=== PATIENT | female | born 1995 | race Hispanic/Latino ===

== ENCOUNTER 2020-04-24 22:58 | Emergency (ER) | payer SELFPAY ==
[~2020-04-24] VITALS: Ht 157.5 cm; Wt 77.1 kg
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
--- OUTSIDE RECORDS SUMMARY | 2020-04-25 00:35 | XMS REPORT | Continuity of Care Document ---
Author Author [facility] Organization [facility] Address [address] [place] [address] Phone Unavailable Care Team Providers Care Detective Bureau Chief Name Role Phone Asked, Pcp No PCP Unavailable Paz COURTNEY, Nathaniel Nelson Attphys Problems This patient has no known problems. Allergies, Adverse Reactions, Alerts This patient has no known allergies or adverse reactions. Social History Social Habit Start Date Stop Date Quantity Comments Source History SDOH Alcohol Std Drinks Cherry Sabianist History SDOH Alcohol Binge Cherry Sabianist Sex Assigned At Jenifer stoisidra Sabianist [facility] to SARS-CoV-2 (event) [facility] Tobacco use and exposure 2020-04-21 00:00:00 2020-04-21 00:00:00 Lanie downs used [facility]ianist Alcohol intake 2020-04-21 00:00:00 2020-04-21 00:00:00 Ex-drinker (fi nding) Cherry Sabianist History SDOH Alcohol Frequency 2020-04-21 00:00:00 2020-04-21 00:00:0 0 1 Cherry Sabianist Smoking Status Start Date Stop Date Source Never smoker Cherry Alcides Medications Ordered Medication Name Filled Medication Name Start Date Stop Da te Current Medication? Ordering Clinician Indication Dosage Frequency Signature (SIG) Comments Components Source ibuprofen (ADVIL) 600 MG tablet 2020-04-21 00:00:00 23:59:00 Yes 600mg Q6H Take 1 tablet (600 m g total) by mouth every 6 (six) hours as needed for mild pain for up to 20 days. Cherry Sabianist medroxyPROGESTERone (Provera) 10 MG tablet 04-21 00:00:00 2020-05-01 23:59:00 Yes 10mg QD Take 1 tablet (10 mg total) by mouth daily for 10 days. Kenan Trimble Vital Signs Vital Name Observation Time Observation Value Comments Source Body height 2020-04-21 12:34:00 157.5 cm Kenan Trimble Body weight 2020-04-21 12:34:00 77.111 kg Kenan Trimble BMI 2020-04-21 12:34:00 31.09 kg/m2 Kenan Trimble Systolic blood pressure 2020-04-21 12:23:19 125 mm[Hg] Kenan Trimble Diastolic blood pressure 2020-04-21 12:23:19 79 mm[Hg] Kenan Trimble Heart rate 2020-04-21 12:23:19 63 /min Kenan Trimble Body temperature 2020-04-21 12:23:19 36.61 Clara Gregory ton Sabianist Respiratory rate 2020-04-21 12:23:19 18 /min [place] Sabianist Oxygen saturation in Arterial blood by Pulse oximetry 2019-06 12:23:19 98 /min Kenan Trimble Procedures Procedure Date / Time Performed Performing Clinician Sour e HCG QUALITATIVE, URINE SCREEN 2020-04-21 12:50:00 Gt Mullen HC COMPLETE BLD COUNT W/AUTO DIFF 2020-04-21 12:45:00 Omar Mullen BASIC METABOLIC PANEL 2020-04-21 12:45:00 Omar Mullen ESTIMATED GFR 2020-04-21 12:45:00 [facility] Encounters Start Date/Time End Date/Time [facility]counter [facility] Ad[facility] [place] ID Source 2020-04-21 00:00:00 2020-04-21 00:00:00 Emergency [facility] [id number] Kenan Trimble Results Test Description Test Time Test Comments Results Result Comments Source Basic metabolic panel 2020-04-21 13:25:07 Test Item Glucose (test code = 2345-7) 93 mg/dL 73-118 BUN (test code = 3094-0) 8 mg/dL 7-22 Calcium (test code = 71365-8) 8.5 mg/dL 8-10.3 Creatinine (test code = 2160-0) 0.6 mg/dL 0.5-0.9 Sodium (test code = 2951-2) 137 128- 145 mEq/L Potassium (test code = 2823-3) 3.8 3.6- 5.1 mEq/L Chloride (test code = 5-0) 100 98- 108 mEq/L CO2 (test code = 2027-9) 30 18- 33 mEq/L Anion gap (test code = 49403-7) 7@ANIO 7- 15 mEq/L [facility] [id number] 13:25:07* Test Item Value Reference Range Interpretation Comments Estimated GFR (test code = 5488) >=90 mL/min/1.73 m2 Catergory Units InterpretationG1 >=90 Normal or highG2 60-89 Mildly dxyxaoucsV8j 45-59 Mildly to moderately fzacdgeghD8x 30-44 Moderately to severely decreasedG4 15-29 Severely decreasedG5 <15 Kidney failureThe eGFR was calculated using the Chronic Kidney Disease Epidemiology Collaboration (CKD-EPI) equation. Interpretation is based on recommendations of the National Kidney Foundation-Kidney Disease Outcomes Quality Initiative (NKF-KDOQI) published in 2014. [facility] with platelet and [id number] 13:11:33* Test Item Value Reference Range Interpretation Comments WBC (test code = 36883-8) 10.00 4.50- 11.00 k/uL RBC (test code = 14312-6) 3.50 m/uL 4.2-5.5 L HGB (test code = 718-7) 10.7 g/dL 12-16 L HCT (test code = 4544-3) 32.4 % 37-47 L MCV (test code = 787-2) 92.6 fL 82-100 MCH (test code = 785-6) 30.6 pg 27-34 MCHC (test code = 786-4) 33.0 g/dL 31-37 RDW - SD (test code = 15974-7) 45.5 fL 37-55 MPV (test code = 26550-7) 10.3 fL 8.8-13.2 Platelet count (test code = 92753-8) 372 150- 400 k/uL Neutrophils (test code = 37585-1) 58.4 % 39-69 Lymphocytes (test code = 51346-3) 34.9 % 25-45 Monocytes (test code = 88650-9) 5.5 % 0-10 Eosinophils (test code = 01682-4) 0.9 % 0-5 Basophils (test code = 07149-0) 0.3 % 0-1 Lab Interpretation (test code = 86219-7) Abnormal [facility] qualitative, urine [id number] 13:10:18* Test Item Value Reference Range Interpretation Comments hCG qualitative, urine (test code = 2106-3) Negative Sensitivity of HCG test: 25 mIU/mLNegative test results in patients suspected to be should be retested with a sample obtained 48-72 hours later, or by performing a quantitative assay. Art History Instructor Name: traineeDevice ID: [id number] Kenan Trimble
--- OUTSIDE RECORDS SUMMARY | 2020-04-25 00:35 | XMS REPORT | Clinical Summary ---
Author Author [facility] Organization [facility] Address Unknown Phone Unavailable Care Team Providers Care Food Preparation Supervisor Name Role Phone Asked, No Pcp PCP Unavailable Allergies No Known Active Allergies Medications End Date Status Medication Sig Dispensed Refills Start Date 05/11/2020 Active ibuprofen (ADVIL) 600 MG Take 1 tablet 20 tablet 0 tablet (600 mg 0 total) by mouth every 6 (six) hours as needed for mild pain for up to 20 days. 05/01/2020 Active medroxyPROGESTERone Take 1 tablet 10 tablet 0 04/03 (Provera) 10 MG tablet (10 mg total) 0 by mouth daily for 10 days. Active Problems Not on file Encounters Care Team Description Date Type Specialty Omar Mullen MD Dysfunctional uterine bleeding (Primary Dx) 04/21/2020 Emergency Emergency Medicine 04/21/2020 Travel after 04/25/2019 Surgical History Surgery Date Site/Laterality Comments NO PAST SURGERIES Medical History Medical History Date Comments No known health problems Social History Date Tobacco Use Types Packs/Day Years Used Never Smoker Smokeless Tobacco: Never Used Drinks/Week oz/Week Comments Alcohol Use Not Currently Alcohol Habits Answer Date Recorded How often do you have a drink containing alcohol? Never 04/21/2020 How many drinks containing alcohol do you have on No t asked a typical day when you are drinking? How often do you have six or more drinks on one Not asked occasion? Sex Assigned at Date Recorded Not on file Industry Job Start Date Occupation Not on file Not on file Not on file Date Recorded COVID-19 Exposure Response 04/21/2020 12:20 PM [employer] In the last month, have you been in contact with No / Unsure someone who was confirmed or suspected to have Coronavirus / COVID-19? Last Filed Vital Signs Reading Time Taken Comments Vital Sign 125/79 04/21/2020 12:23 PM [employer] Blood Pressure 63 04/21/2020 12:23 PM [employer] Pulse 36.6 C (97.9 F) 04/21/2020 12:23 PM [employer] Temperature 18 04/21/2020 12:23 PM [employer] Respiratory Rate 98% 04/21/2020 12:23 PM [employer] Oxygen Saturation - - Inhaled Oxygen Concentration 77.1 kg (170 lb) 04/21/2020 12:34 PM [employer] Weight 157.5 cm (5' 2") 04/21/2020 12:34 PM [employer] Height 31.09 04/21/2020 12:34 PM [employer] Body Mass Index Plan of Treatment Not on file Procedures Comments Procedure Name Priority Date/Time Associated Diag nosis HCG QUALITATIVE, URINE STAT 04/21/2020 SCREEN 12:50 PM [employer] ESTIMATED GFR STAT 04/21/2020 12:45 PM [employer] BASIC METABOLIC PANEL STAT 04/21/2020 12:45 PM [employer] HC COMPLETE BLD COUNT STAT 04/21/2020 W/AUTO DIFF 12:45 PM [employer] after 04/25/2019 Results * hCG qualitative, urine screen (04/21/2020 12:50 PM [employer]) [facility] hCG Negative [place] qualitative, Comment: [facility] urine Sensitivity of HCG test: 25 [place] mIU/mL EMERGENCY CARE Negative test results in CENTER patients suspected to be should be retested with a sample obtained 48-72 hours later, or by performing a quantitative assay. Pulp Beater Name: trainee Device ID: [id number] Specimen Urine Performing Organization Address City/State/[place] [address] PATHOLOGY AND GENOMIC MEDICINE, [facility] [place] [employer] [address] [place] [address] * Estimated GFR (04/21/2020 12:45 PM [employer]) [facility] Estimated GFR >=90 mL/min/1.73 m2 [place] Comment: [facility] Catergory Units [facility] EMERGENCY CARE G1 >=90 [place] Normal or high G2 60-89 Mildly decreased G3a 45-59 Mildly to moderately decreased G3b 30-44 Moderately to severely decreased G4 15-29 Severely decreased G5 <15 Kidney failure The eGFR was calculated using the Chronic Kidney Disease Epidemiology Collaboration (CKD-EPI) equation. Interpretation is based on recommendations of the National Kidney Foundation-Kidney Disease Outcomes Quality Initiative (NKF-KDOQI) published in 2014. Specimen Plasma Performing Organization Address City/[facility] [place] [address] PATHOLOGY AND GENOMIC MEDICINE[address] * CBC with platelet and differential (04/21/2020 12:45 PM [employer]) WBC 10.00 4.50 - 11.00 k/uL [facility] RBC 3.50 (L) 4.20 - 5.50 m/uL [facility] HGB 10.7 (L) 12.0 - 16.0 g/dL [facility] HCT 32.4 (L) 37.0 - 47.0 % [facility] MCV 92.6 82.0 - 100.0 fL [facility] MCH 30.6 27.0 - 34.0 pg [facility] MCHC 33.0 31.0 - 37.0 g/dL [facility] RDW - SD 45.5 37.0 - 55.0 fL [facility] MPV 10.3 8.8 - 13.2 fL [facility] Platelet count 372 150 - 400 k/uL [facility] Neutrophils 58.4 39.0 - 69.0 % [facility] Lymphocytes 34.9 25.0 - 45.0 % [facility] Monocytes 5.5 0.0 - 10.0 % [facility] Eosinophils 0.9 0.0 - 5.0 % [facility] Basophils 0.3 0.0 - 1.0 % [facility] Specimen Plasma Performing Organization Address City/[facility] [place] [address] PATHOLOGY AND GENOMIC MEDICINE, [facility] [address] * Basic metabolic panel (04/21/2020 12:45 PM [employer]) Glucose 93 73 - 118 mg/dL [facility] BUN 8 7 - 22 mg/dL [facility] Calcium 8.5 8.0 - 10.3 mg/dL [facility] Creatinine 0.6 0.5 - 0.9 mg/dL [facility] Sodium 137 128 - 145 mEq/L [facility] Potassium 3.8 3.6 - 5.1 mEq/L [facility] Chloride 100 98 - 108 mEq/L [facility] CO2 30 18 - 33 mEq/L [facility] Anion gap 7@ANIO 7 - 15 mEq/L [facility] Specimen Plasma Performing Organization Address City/State/[place] [address] PATHOLOGY AND GENOMIC MEDICINE, [address] after 04/25/2019 Advance Directives For more information, please contact: [phone] Patient Credit Operations Specialist Explanation Type Date Recorded Advance Directives, 04/21/2020 1:07 PM Living Will and Medical Power of Manual Tester
[2020-04-25] MEDS ORDERED: ACETAMINOPHEN 325 MG TAB ONE (01:08)
[2020-04-25] MEDS ORDERED: TETANUS/DIPHTHERIA TOX ADULT 0.5 ML SYR ONE (01:09)
--- NOTE | 2020-04-25 01:14 | Diagnostic Imaging Report ---
EXAMINATION: CXR 2 VIEW - HOPD INDICATION: ^pain/trauma COMPARISON: None FINDINGS: TUBES and LINES: None. LUNGS: Normal lung volumes. Lungs are clear. No consolidations. PLEURA: No pleural effusion or pneumothorax. HEART AND MEDIASTINUM: The cardiomediastinal silhouette is unremarkable. BONES AND SOFT TISSUES: No acute osseous lesion. Soft tissues are unremarkable. UPPER ABDOMEN: No free air under the diaphragm. IMPRESSION: No acute thoracic radiographic abnormality. Signed by: Vinh Vasquez MD on 04/25/2020 1:11 AM
--- NOTE | 2020-04-25 01:15 | Diagnostic Imaging Report ---
HUMERUS 2VIEW RT -HOPD - 3 views HISTORY: Pain. COMPARISON: None available. FINDINGS: No acute displaced fracture. Osseous alignment is within normal limits. IMPRESSION: No acute radiographic abnormality. Signed by: Vinh Vasquez MD on 04/25/2020 1:12 AM
[2020-04-25] MEDS: TETANUS/DIPHTHERIA TOX ADULT 0.5 ML SYR IM ONE (01:25)
[2020-04-25] MEDS: ACETAMINOPHEN 325 MG TAB PO ONE (01:25)
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
[2020-04-25] MEDS ORDERED: CYCLOBENZAPRINE5 MG PO (02:22)
[2020-04-25] MEDS ORDERED: IBUPROFEN600 MG PO (02:22)
[2020-04-25] MEDS ORDERED: BACTRIM DS TAB1 EACH PO (02:27)
--- NOTE | 2020-04-25 03:33 | NUR ---
value stream coach from [employer] used at triage
== END 2020-04-25 03:05 | disposition home or self-care (01) ==
LOC: FSED 04-25 00:30
DX: S01.01XA Laceration without foreign body of scalp, initial encounter (principal); S20.219A Contusion of unspecified front wall of thorax, initial encounter; S43.401A Unspecified sprain of right shoulder joint, initial encounter; V29.88XA Motorcycle rider (driver) (passenger) injured in other specified transport accidents, initial encounter; Y92.488 Other paved roadways as the place of occurrence of the external cause
CPT/HCPCS: 70450; 71046; 72125; 90471; 90714; 99284

== ENCOUNTER 2020-05-04 17:29 | Emergency (ER) | payer SELFPAY ==
[~2020-05-04] VITALS: Ht 157.5 cm; Wt 77.1 kg
[~2020-05-04 17:29] MED LIST: BACTRIM DS TAB1 EACH PO; CYCLOBENZAPRINE5 MG PO; IBUPROFEN600 MG PO
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
--- OUTSIDE RECORDS SUMMARY | 2020-05-04 18:23 | XMS REPORT | Clinical Summary ---
Author Author [facility] Address Unknown Phone Unavailable Care Team Providers Care Social Services Coordinator Name Role Phone Asked, No Pcp PCP Unavailable Allergies No Known Active Allergies Medications End Date Status Medication Sig Dispensed Refills Start Date 05/11/2020 Active ibuprofen (ADVIL) 600 MG Take 1 tablet 20 tablet 0 tablet (600 mg 0 total) by mouth every 6 (six) hours as needed for mild pain for up to 20 days. 05/01/2020 medroxyPROGESTERone Take 1 tablet 10 tablet 0 04/03 (Provera) 10 MG tablet (10 mg total) 0 by mouth daily for 10 days. Active Problems Not on file Encounters Care Team Description Date Type Specialty Omar Mullen MD Dysfunctional uterine bleeding (Primary Dx) 04/21/2020 Emergency Emergency Medicine 04/21/2020 Travel after 05/04/2019 Surgical History Surgery Date Site/Laterality Comments NO [...] Recorded COVID-19 Exposure Response 04/21/2020 12:20 PM WEED CONTROLLER In the last month, have you been in contact with No / Unsure someone who was confirmed or suspected to have Coronavirus / COVID-19? Last Filed Vital Signs Reading Time Taken Comments Vital Sign 125/79 04/21/2020 12:23 PM WEED CONTROLLER Blood Pressure 63 04/21/2020 12:23 PM WEED CONTROLLER Pulse 36.6 C (97.9 F) 04/21/2020 12:23 PM WEED CONTROLLER Temperature 18 04/21/2020 12:23 PM WEED CONTROLLER Respiratory Rate 98% 04/21/2020 12:23 PM WEED CONTROLLER Oxygen Saturation - - Inhaled Oxygen Concentration 77.1 kg (170 lb) 04/21/2020 12:34 PM WEED CONTROLLER Weight 157.5 cm (5' 2") 04/21/2020 12:34 PM WEED CONTROLLER Height 31.09 04/21/2020 12:34 PM WEED CONTROLLER Body Mass Index Plan of Treatment Not on file Procedures Comments Procedure Name Priority Date/Time Associated Diag nosis HCG QUALITATIVE, URINE STAT 04/21/2020 SCREEN 12:50 PM WEED CONTROLLER ESTIMATED GFR STAT 04/21/2020 12:45 PM WEED CONTROLLER BASIC METABOLIC PANEL STAT 04/21/2020 12:45 PM WEED CONTROLLER HC COMPLETE BLD COUNT STAT 04/21/2020 W/AUTO DIFF 12:45 PM WEED CONTROLLER after 05/04/2019 Results * hCG qualitative, urine screen (04/21/2020 12:50 PM WEED CONTROLLER) [facility] hCG Negative [facility] qualitative, Comment: [facility] urine Sensitivity of HCG test: 25 [place] mIU/mL EMERGENCY CARE Negative test results in CENTER patients suspected to be should be retested with a sample obtained 48-72 hours later, or by performing a quantitative assay. Logging Truck Driver Name: trainee Device ID: [id number] Specimen Urine Performing Organization Address City/State/ZIP Code P hiram Number DEPARTMENT OF [address] [place] [address] PATHOLOGY AND GENOMIC MEDICINE, [place] [facility] [address] [place] [address] * Estimated GFR (04/21/2020 12:45 PM WEED CONTROLLER) [facility] Estimated GFR >=90 mL/min/1.73 m2 [facility] Comment: [facility] Catergory Units [facility] EMERGENCY CARE G1 >=90 [place] Normal or high G2 60-89 Mildly decreased G3a 45-59 Mildly to moderately decreased G3b 30-44 Moderately to severely decreased G4 15-29 Severely decreased G5 <15 Kidney failure The eGFR was calculated using the Chronic Kidney Disease Epidemiology Collaboration (CKD-EPI) equation. Interpretation is based on recommendations of the National Kidney Foundation-Kidney Disease Outcomes Quality Initiative (NKF-KDOQI) published in 2014. Specimen Plasma Performing Organization Address City/[facility] [place] [address] PATHOLOGY AND GENOMIC MEDICINE[address] * CBC with platelet and differential (04/21/2020 12:45 PM WEED CONTROLLER) WBC 10.00 4.50 - 11.00 k/uL [facility] RBC 3.50 (L) 4.20 - 5.50 m/uL [facility] HGB 10.7 (L) 12.0 - 16.0 g/dL [facility] HCT 32.4 (L) 37.0 - 47.0 % [facility] MCV 92.6 82.0 - 100.0 fL [facility] MCH 30.6 27.0 - 34.0 pg [facility] MCHC 33.0 31.0 - 37.0 g/dL [facility] RDW - SD 45.5 37.0 - 55.0 fL [facility] MPV 10.3 8.8 - 13.2 fL [facility] Platelet count 372 150 - 400 k/uL [facility] Neutrophils 58.4 39.0 - 69.0 % [facility] Lymphocytes 34.9 25.0 - 45.0 % [facility] Monocytes 5.5 0.0 - 10.0 % [facility] Eosinophils 0.9 0.0 - 5.0 % [facility] Basophils 0.3 0.0 - 1.0 % [facility] Specimen Plasma Performing Organization Address City/[facility] Code [place] [address] PATHOLOGY AND GENOMIC MEDICINE, [facility] [address] * Basic metabolic panel (04/21/2020 12:45 PM WEED CONTROLLER) Glucose 93 73 - 118 mg/dL [facility] BUN 8 7 - 22 mg/dL [facility] Calcium 8.5 8.0 - 10.3 mg/dL [facility] Creatinine 0.6 0.5 - 0.9 mg/dL [facility] Sodium 137 128 - 145 mEq/L [facility] Potassium 3.8 3.6 - 5.1 mEq/L [facility] Chloride 100 98 - 108 mEq/L [facility] CO2 30 18 - 33 mEq/L [facility] Anion gap 7@ANIO 7 - 15 mEq/L [facility] Specimen Plasma Performing Organization Address City/State/ZIP Code [place] [address] PATHOLOGY AND GENOMIC MEDICINE, [address] after 05/04/2019 Advance Directives For more information, please contact: [phone] 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
== END 2020-05-04 18:37 | disposition home or self-care (01) ==
LOC: FSED 17:50
DX: Z48.02 Encounter for removal of sutures (principal)
CPT/HCPCS: 99282